=== PATIENT | female | born 1985 | race Caucasian/White ===

== ENCOUNTER 2017-02-10 10:47 | Emergency (ER) | payer MEDICAID, OTHER, SELFPAY ==
[~2017-02-10] VITALS: Ht 165.1 cm; Wt 57.0 kg
[2017-02-10] MEDS ORDERED: SODIUM CHLORIDE 0.9% 1,000ML IVBOLUS ONE (11:30)
[2017-02-10 12:01] LABS: HEMATOCRIT 42.4 % (34.6-47.8); HEMOGLOBIN 14.4 g/dL (11.7-16.4); WHITE BLOOD COUNT 20.3 x10^3/uL (3.4-10)
[2017-02-10 12:14] LABS: ASPARTATE AMINO TRANSFERASE 22 U/L (15-37); BLOOD UREA NITROGEN 13 mg/dL (7-18)
[2017-02-10 12:19] LABS: DIFF TOTAL CELLS COUNTED 100 CELL DIFF
[2017-02-10 12:21] LABS: VERIFY COUNTS? YES
[2017-02-10] MEDS ORDERED: ONDANSETRON ODT 4 MG ONE (13:29)
[2017-02-10] MEDS ORDERED: ONDANSETRON ODT 4 MG PO ONE (13:30)
[2017-02-10 17:47] VITALS: BP 106/61
== END 2017-02-10 17:49 | disposition home or self-care (01) ==
LOC: ED 16:28
DX: F11.23 Opioid dependence with withdrawal (principal); F15.10 Other stimulant abuse, uncomplicated; F14.10 Cocaine abuse, uncomplicated
CPT/HCPCS: 36415; 71010; 80053; 81001; 82550; 84703; 85025; 93005; 99285; Q0162